=== PATIENT | female | born 1995 | race African-American/Black ===

== ENCOUNTER 2018-09-02 17:48 | Emergency (ER) | payer OTHER ==
[~2018-09-02] VITALS: Ht 160 cm; Wt 57.2 kg
[2018-09-02] MEDS ORDERED: NKM (17:54)
[2018-09-02 18:13] VITALS: BP 120/78
--- NOTE | 2018-09-02 18:13 | NUR ---
ED Nurse Note:pt. came withpossible STD symptoms and possible , urine sent to labs
[2018-09-02 18:19] LABS: APPEARANCE,URINE CLOUDY; BILIRUBIN, URINE NEGATIVE (NEGATIVE); COLOR,URINE YELLOW; GLUCOSE, URINE (UA) NEGATIVE (NEGATIVE); KETONES,URINE 2+ (NEGATIVE); LEUKOCYTE ESTERASE ,URINE 3+ (NEGATIVE); NITRITE,URINE NEGATIVE (NEGATIVE); PH,URINE 5 (4.5-8.0); PROTEIN,URINE 1+ (NEGATIVE); UROBILINOGEN,URINE 1 MG/DL (0.0-1.0)
--- NOTE | 2018-09-02 18:27 | Emergency Room Report ---
History of Present Illness General Chief Complaint: Vaginal Source: Patient Present Illness HPI 22-year-old female with no significant past medical history here complaining of 2 days of yellow malodorous vaginal discharge. Patient reports that she was last sexually active unprotected 3 days ago. Denies any vaginal sores, pruritus. Complains of vaginal irritation as well as 3 out of 10 pain on the outside of the vaginal area. Denies dysuria, hematuria, suprapubic pain, flank pain, nausea vomiting, fever and chills. Patient is unaware whether her partner is positive for any sexually transmitted diseases. Does not use any control. Also wants to be checked for . Last menstrual period was 1 month ago. Denies abdominal pain, chest pain, shortness of breath, palpitation, and other associated symptoms. Allergies: Coded Allergies: No Known Allergies (Unverified , 09/02/18) Patient History Past Medical History: see triage record Past Surgical History: unable to obtain Pertinent Family History: none Now: No Reviewed Nursing Documentation: PMH: Agreed; PSxH: Agreed Nursing Documentation-PMH Hx Asthma: Yes Review of Systems All Other Systems: negative except mentioned in HPI Physical Exam Vital Signs Date Time Temp Pulse Resp B/P (MAP) Pulse Ox O2 Delivery O2 Flow Rate FiO2 09/02/18 17:50 98.4 87 19 120/78 (92) 97 Room Air Sp02 EP Interpretation: reviewed, normal General Appearance: normal inspection, well appearing, no apparent distress, alert Head: normocephalic, atraumatic Eyes: bilateral eye normal inspection, bilateral eye PERRL ENT: normal ENT inspection, hearing grossly normal, normal pharynx Neck: normal inspection, full range of motion, supple, thyroid normal Respiratory: normal inspection, lungs clear, no rhonchi Cardiovascular #1: normal inspection, normal peripheral pulses, regular rate, rhythm Gastrointestinal: normal inspection, non tender, soft Rectal: deferred Genitourinary: no CVA tenderness, ext genitalia/vag normal Musculoskeletal: normal inspection, back normal Neurologic: normal inspection, alert, oriented x3 Psychiatric: normal inspection, judgement/insight normal Skin: normal inspection, normal color, no rash, warm/dry, palpation normal, well hydrated Lymphatic: normal inspection, no adenopathy Medical Decision Making PA Attestation All my diagnosis and treatment plans were reviewed ad discussed with my supervising physician Dr. Magdaleno Diagnostic Impression: Primary Impression: Vaginitis Additional Impression: Screening for STD (sexually transmitted disease) ER Course 22-year-old female with no significant past medical history here complaining of 2 days of yellow malodorous vaginal discharge. Patient reports that she was last sexually active unprotected 3 days ago. Denies any vaginal sores, pruritus. Complains of vaginal irritation as well as 3 out of 10 pain on the outside of the vaginal area. Denies dysuria, hematuria, suprapubic pain, flank pain, nausea vomiting, fever and chills. Patient is unaware whether her partner is positive for any sexually transmitted diseases. Does not use any control. Also wants to be checked for . Last menstrual period was 1 month ago. Denies abdominal pain, chest pain, shortness of breath, palpitation, and other associated symptoms. Ddx considered but are not limited to: UTI, pylonephritis, urinary incontinence , prolapsed bladder, vaginitis, exposure to chlamydia and gonorrhea Vital signs: are WNL, pt. is afebrile H&PE are most consistent with: Vaginitis, STD screening ORDERS: UA, GC and chlamydia, urine , Rocephin, azithromycin, Flagyl, Diflucan ED INTERVENTIONS: Rocephin 250 mg IM, azithromycin 500 mg 2 tablets once DISCHARGE: At this time pt. is stable for d/c to home. Will provide printed patient care instructions, and any necessary prescriptions. Care plan and follow up instructions have been discussed with the patient prior to discharge. Patient agrees to prophylactic treatment for the above conditions such as bacterial vaginosis, yeast infection, chlamydia and gonorrhea. Patient to be follow-up with the primary care provider for further evaluation. Condom use highly advised. Last Vital Signs Date Time Temp Pulse Resp B/P (MAP) Pulse Ox O2 Delivery O2 Flow Rate FiO2 09/02/18 18:13 98.4 79 19 120/78 97 Room Air Disposition: HOME, SELF-CARE Condition: Stable Scripts Fluconazole (FLUCONAZOLE) 100 Mg Tablet 100 MG ORAL DAILY for 1 Day, #1 TAB 0 Refills Prov: Maurilio Patrick 09/02/18 Metronidazole* (FLAGYL*) 500 Mg Tablet 500 MG ORAL EVERY 12 HOURS for 7 Days, #14 TAB Prov: Maurilio Patrick 09/02/18 Patient Instructions: Vaginitis, [id number] Additional Instructions: Follow-up with a primary care provider for further evaluation pending results take medication as directed condom use advised to avoid drinking alcohol when taking Flagyl Maurilio Patrick Sep 02, 2018 18:27
[2018-09-02] MEDS ORDERED: FLUCONAZOLE100 MG ORAL (18:28)
[2018-09-02] MEDS ORDERED: METRONIDAZOLE500 MG ORAL (18:28)
[2018-09-02] MEDS ORDERED: Azithromycin 250mg tab ORAL ONE (18:30)
[2018-09-02] MEDS ORDERED: Lidocaine 1% MPF 10mg/ml 5ml INJ ONE (18:30)
[2018-09-02 18:45] VITALS: BP 120/78
--- NOTE | 2018-09-02 18:46 | NUR ---
ER DISCHARGE NOTE: Patient is cleared to be discharged per ERMD, pt is aox4, on room air, with stable vital signs. pt was given dc and prescription instructions, pt was able to verbalize understanding, pt is able to ambulate with steady gait. pt took all belongings.
== END 2018-09-02 18:45 | disposition home or self-care (01) ==
LOC: EMR 18:10
DX: N76.0 Acute vaginitis (principal)
CPT/HCPCS: 81001; 81025; 87491; 87590; 96372; 96374; 99284; J0696; Q0144